=== PATIENT | male | born 1945 | race Caucasian/White ===

== ENCOUNTER → 2019-06-24 12:45 | Outpatient (CLI) | payer MEDICARE, OTHER, SELFPAY ==
--- NOTE | 2019-06-24 12:47 | DI.MRI.S_ITS ---
PROCEDURE: MR LUMBAR SPINE WO CON INDICATIONS: lower back pain. Left hip pain. Right leg pain TECHNIQUE: Noncontrast sagittal T1 spin echo and T2 fast echo, sagittal STIR, axial T1 and T2 fast spin echo through the lumbar spine. In cases with scoliosis, additional coronal T2 fast spin echo may be performed. COMPARISON: CR, SPINE LUMB MIN 4VW, 01/02/2017, 14:44. [facility], MR, L-SPINE WITHOUT CONTRAST, 07/10/2014, 7:14. FINDINGS: Image quality: Excellent. Alignment and Curvature: There is trace retrolisthesis of L2 on L3, L5 on S1. Bone Marrow: Marrow is of normal overall signal. Schmorl's node is noted along the superior endplate of L3 as well as smaller Schmorl's node along the inferior endplate of L2 with minimal surrounding marrow edema. No acute vertebral body compression fractures. Spinal Cord: Conus medullaris terminates at the L1-L2 level. Visualized cord demonstrates normal signal and size. Paraspinous Soft Tissues: No paravertebral masses. Discs: Moderate to severe desiccation is present most notable at L5-S1. L1-L2: Mild disc bulge without spinal stenosis. Minimal to mild left foraminal narrowing with facet and ligamentum flavum hypertrophy. Minimal interval progression. L2-L3: Mild disc bulge with mild spinal stenosis. Mild right and [id number] left foraminal narrowing with mild interval progression. Facet and ligamentum flavum hypertrophy are present. L3-L4: Mild disc bulge with severe spinal stenosis and canal compression, progressive compared to prior exam. There is moderate left and mild right foraminal narrowing, progressive on the left with facet and ligamentum flavum hypertrophy. L4-L5: Mild disc bulge with severe spinal stenosis and canal compression, progressive compared to prior exam. There is severe right and moderate left foraminal narrowing with facet and ligamentum flavum hypertrophy. Right lateral/foraminal protrusion is again noted. L5-S1: Mild disc bulge without spinal stenosis. There is a superimposed right lateral/foraminal protrusion. Severe bilateral foraminal narrowing with facet and ligamentum flavum hypertrophy. IMPRESSION: 1. Although the degenerative changes with areas of interval progression as above. 2. Severe spinal stenosis most notable L3-4 and L4-5 secondary to disc bulge with contributing effects of facet/ligament of an arthropathy. 3. Severe foraminal narrowing most severe at L4-L5 and L5-S1 secondary to facet arthropathy. Dictated by: Aggie Trevizo M.D. on 06/24/2019 at 14:32 Approved by: Aggie Trevizo M.D. on 06/24/2019 at 15:37
== END ==
PROVIDERS: Family Provider Family Medicine; PCP Family Medicine; Visit Provider Physical Medicine & Rehabilitation
DX: M54.5 Low back pain (principal); M25.552 Pain in left hip; M79.604 Pain in right leg; M47.26 Other spondylosis with radiculopathy, lumbar region; M47.27 Other spondylosis with radiculopathy, lumbosacral region; M48.061 Spinal stenosis, lumbar region without neurogenic claudication; M48.07 Spinal stenosis, lumbosacral region; M99.83 Other biomechanical lesions of lumbar region
CPT/HCPCS: 72148

== ENCOUNTER → 2020-08-12 09:05 | Outpatient (CLI) | payer MEDICARE, OTHER, SELFPAY ==
[2020-08-12] MEDS: COVID-19 VACC, Ad26(JANSSEN)/PF 0.5 ML IM (09:12)
== END ==
PROVIDERS: Visit Provider Internal Medicine
DX: Z23 Encounter for immunization (principal)
CPT/HCPCS: 0031A; 91303

== ENCOUNTER → 2020-12-01 07:59 | Outpatient (CLI) | payer MEDICARE, OTHER, SELFPAY ==
[2020-12-01 11:22] LABS: COVID19 -Nasal RAPID Negative (Negative)
== END ==
PROVIDERS: Visit Provider Student in an Organized Health Care Education/Training Program
DX: Z01.812 Encounter for preprocedural laboratory examination (principal); Z20.822 Contact with and (suspected) exposure to COVID-19
CPT/HCPCS: 87635; C9803

== ENCOUNTER 2020-12-03 11:58 | Day surgery (SDC) | payer MEDICARE, OTHER, SELFPAY ==
--- NOTE | 2020-12-03 12:10 | PM.HP.1 ---
History of Present Illness History of Present Illness Date Patient Seen: 12/03/20 Chief complaint: SDC Narrative: 75 year old male comes in today for consideration of a screening colonoscopy. Last colonoscopy in 2007, normal. There have been no lower GI symptoms suggesting disease such as change in bowel habits, bleeding, abdominal pain or anemia. There's been no family history of colon cancer or colon polyps. Overall health issues have been stable, including no major cardiac events for at least 6 weeks. PCP: Dr. Peralta Past Medical History: HYPERLIPIDEMIA HYPERTENSION HYPOTHYROIDISM LUMBAR RADICULOPATHY JEHOVAH WITNESS Past Surgical History: BORA, 2016 Achilles tendon repair Colonoscopy Family History: Mother: Diabetes Social History: Marital Status: - Diana 02/28/49 - Retired Household Members: Mosque: Jehovah Witness - no blood transfusion Patient History Medical History (Updated 07/08/20 @ 08:47 by [employer]) Facet arthropathy, lumbar Surgical History H/O Achilles tendon repair Family & Social History Family History Father Kidney disease Mother Aneurysm Tobacco & Substance use: Smoking Status Never smoker Meds Home Medications and Allergies Home Medications Medication Instructions Recorded Confirmed Type atorvastatin 10 mg tablet PO DAILY 90 Days tab 05/23/18 06/26/19 History levothyroxine 75 mcg tablet PO DAILY 90 Days tab 05/23/18 06/26/19 History lisinopril 10 mg tablet 20 mg PO DAILY 30 Days tab 05/23/18 12/03/20 History gabapentin 600 mg tablet 600 mg PO TID #90 tab 05/12/19 12/03/20 Rx Allergies Allergy/AdvReac Type Severity Reaction Status Date / Time No Known Drug Allergies Allergy Verified 12/03/20 12:17 Review of Systems Review of Systems Narrative: Ten point review of systems completed and found to be noncontributory except for items mentioned in the HPI. Assessment & Plan Assessment & Plan narrative: 1. Screening for colon cancer Plan for colonoscopy. The nature and character of the procedure as well as anticipated results were discussed. The possibility of not completing the procedure was also discussed. Possible complications including aspiration pneumonia, bleeding, perforation and reaction to medications either for sedation or preparation and missed lesions were discussed. Questions were answered and proceeding to the colonoscopy was elected. Informed consent signed.
--- NOTE | 2020-12-03 12:13 | PM.OP.ENDO ---
Operative Date/Time/Diagnoses Date of procedure: 12/03/20 Procedure Notes SCOAP/Timeout: 1:16 p.m. Procedure in detail: ENDOSCOPIST: Janeen Peralta MD Sedation RN: Valerie Maxwell RN Sedation start time: 1:17 p.m. Sedation end time: 1:37 p.m. PROCEDURE: Colonoscopy INDICATIONS: 1. Screening for colon cancer MEDICATION: Levsin 0.125 mg sublingual, incremental doses of Versed and fentanyl until appropriate level sedation achieved. ASA CLASS: 2 CECAL WITHDRAWAL TIME: 7 minutes COMPLICATIONS: None. EXTENT OF PROCEDURE: Cecum. QUALITY OF PREP: Good with portions of liquid stool. PROCEDURE: Prior to insertion of the colonoscope, a digital rectal examination was accomplished with circumferential palpation of the distal rectal mucosa without significant findings being noted. The high-definition colonoscope was passed into the rectum in the usual fashion and advanced over to the cecum without difficulty. The ileocecal valve, appendiceal stoma, and medial wall all could be inspected and no abnormalities were seen. ASCENDING COLON: As the colonoscope was withdrawn, care was taken to expose and inspect the haustral folds and no abnormalities were seen. HEPATIC FLEXURE: Normal, no polyps, diverticula or other abnormalities. TRANSVERSE COLON: Normal, no polyps, diverticula or other abnormalities. DESCENDING COLON: Normal, no polyps, diverticula or other abnormalities. SIGMOID COLON: Normal, no polyps, diverticula or other abnormalities. RECTUM: Normal. J maneuver was produced. There was no significant perianal disease. The J maneuver was broken. The remainder of the rectum was inspected and there was no external hemorrhoid disease. The scope was withdrawn. IMPRESSION: 1. Normal colonoscopy PLAN: 1. Secondary to age, this can be patient's last colonoscopy. The possibility of a missed lesion including a malignancy has been discussed with the patient previously. Potential alarm symptoms have been discussed and should be reported immediately.
[2020-12-03 12:21] VITALS: BP 141/82; PULSE 79; RESP 16; TEMP 36.1; O2SAT 99; BMI 26.6
[2020-12-03] MEDS: HYOSCYAMINE 0.125 MG TABLET PO (12:34)
[2020-12-03] MEDS: LACTATED RINGERS 1,000 ML 200 ML IV (12:34)
[2020-12-03] MEDS: MIDAZOLAM 5 MG/5 ML VIAL IV (13:26)
[2020-12-03] MEDS: fentaNYL 250 MCG/5 ML INJ IV (13:26)
[2020-12-03 13:40] VITALS: BP 128/76; PULSE 78; RESP 12; TEMP 36.7; O2SAT 97
[2020-12-03 13:45] VITALS: BP 136/88; PULSE 80; RESP 14; O2SAT 96
[2020-12-03 13:50] VITALS: BP 134/86; PULSE 75; RESP 16; O2SAT 95
[2020-12-03 14:10] VITALS: BP 136/82; PULSE 74; RESP 16; TEMP 36.4; O2SAT 97
== END 2020-12-03 14:10 | disposition home or self-care (01) ==
PROVIDERS: PCP Student in an Organized Health Care Education/Training Program; Referring Provider Student in an Organized Health Care Education/Training Program; Visit Provider Student in an Organized Health Care Education/Training Program
PROC: 0DJD8ZZ Inspection of Lower Intestinal Tract, Via Natural or Artificial Opening Endoscopic (ICD-10-PCS; CPT 45378; principal; 2020-12-03 13:00)
DX: Z12.11 Encounter for screening for malignant neoplasm of colon (principal); E78.5 Hyperlipidemia, unspecified; I10 Essential (primary) hypertension; E03.9 Hypothyroidism, unspecified
CPT/HCPCS: G0121; J2250; J3010

== ENCOUNTER → 2021-04-08 10:47 | Outpatient (CLI) | payer MEDICARE, OTHER, SELFPAY ==
[2021-04-08] MEDS: COVID-19 VACC #3, MRNA(MOD) 50 MCG/0.25 ML VIAL IM (10:52)
== END ==
PROVIDERS: PCP Student in an Organized Health Care Education/Training Program; Visit Provider Internal Medicine
DX: Z23 Encounter for immunization (principal)
CPT/HCPCS: 0013A; 91301

== ENCOUNTER → 2022-08-24 10:42 | Outpatient (CLI) | payer MEDICARE, OTHER, SELFPAY ==
--- NOTE | 2022-08-24 10:44 | DI.RAD.S_ITS ---
PROCEDURE: XR LUMBAR SPINE MIN 4V INDICATIONS: low back and right hip pain TECHNIQUE: 5 views of the lumbar spine were acquired, including bilateral oblique views. COMPARISON: None. FINDINGS: Bones: Five nonrib-bearing vertebrae are present. Trace retrolisthesis L1 on two and L2 on three. Moderate multilevel disc height loss, most severe at L5-S1. Bridging endplate osteophytes anteriorly. No vertebral body compression fractures. No suspicious bony lesions. Soft tissues: Overlying bowel gas pattern is normal. No suspicious soft tissue calcifications. Oblique images: No pars defects. IMPRESSION: 1. Multilevel spondylosis. 2. Trace retrolisthesis in the upper lumbar spine. Dictated by: Analia Brand M.D. on 08/24/2022 at 16:40 Approved by: Analia Brand M.D. on 08/24/2022 at 16:42
--- NOTE | 2022-08-24 10:44 | DI.RAD.S_ITS ---
PROCEDURE: XR KNEE RT 3V INDICATIONS: right knee pain TECHNIQUE: 3 views of the knee were acquired. COMPARISON: None. FINDINGS: Bones: No fractures or dislocations. No suspicious bony lesions. Soft tissues: No joint effusion. No suspicious soft tissue calcifications. IMPRESSION: Intact right knee. Dictated by: Analia Brand M.D. on 08/24/2022 at 16:42 Approved by: Analia Brand M.D. on 08/24/2022 at 16:42
== END ==
PROVIDERS: PCP Family Medicine; Referring Provider Anesthesiology; Visit Provider Anesthesiology
DX: M25.551 Pain in right hip (principal); M54.50 Low back pain, unspecified; M25.561 Pain in right knee; M47.816 Spondylosis without myelopathy or radiculopathy, lumbar region; M43.16 Spondylolisthesis, lumbar region; M54.40 Lumbago with sciatica, unspecified side; G89.29 Other chronic pain; Z68.29 Body mass index [BMI] 29.0-29.9, adult
CPT/HCPCS: 72110; 73562; 99214

== ENCOUNTER → 2022-08-28 15:40 | Outpatient (CLI) | payer MEDICARE, OTHER, SELFPAY ==
--- NOTE | 2022-08-28 15:53 | DI.MRI.S_ITS ---
PROCEDURE: MR LUMBAR SPINE WO CON INDICATIONS: LOW BACK PAIN TECHNIQUE: Noncontrast sagittal T1 spin echo and T2 fast echo, sagittal STIR, and T2 fast spin echo through the lumbar spine. In cases with scoliosis, additional coronal T2 fast spin echo may be performed. COMPARISON: [facility], MR, MR LUMBAR SPINE WO CON, 06/24/2019, 12:58. FINDINGS: Image quality: Excellent. Alignment and Curvature: There is normal bony alignment. Bone Marrow: Marrow is of normal overall signal. No acute vertebral body compression fractures. Spinal Cord: Conus medullaris terminates at the L1 level. Visualized cord demonstrates normal signal and size. Paraspinous Soft Tissues: No paravertebral masses. T12-L1: Moderate disc desiccation and height loss. No canal stenosis. No foraminal stenosis. L1-L2: Moderate disc desiccation and height loss. Mild facet ligamentum flavum hypertrophy. Broad-based disc bulge. No canal stenosis. No interval change when compared with the study dated June 24, 2019. L2-L3: Moderate disc desiccation and height loss. Broad-based disc bulge. Moderate facet ligamentum flavum hypertrophy. Mild canal stenosis. Moderate bilateral neural foraminal stenosis. The extent of canal stenosis, facet and ligamentum flavum hypertrophy and foraminal stenosis is increased from the 2019 study. There is a small posterior focal high-intensity zone present which may be new from the prior study. L3-L4: Moderate disc desiccation and height loss. Broad-based disc bulge. Severe facet and ligamentum flavum hypertrophy. Severe canal stenosis. The AP diameter of the canal measures 6 mm. This is similar in extent to the prior study from 2019. Severe right and moderate left foraminal stenosis. These findings are unchanged. L4-L5: Severe disc desiccation and height loss. Vacuum disc phenomenon. Severe facet and ligamentum flavum hypertrophy. There is a 1.0 x 0.6 x 1.2 cm central and right paracentral disc protrusion with resultant severe canal stenosis. Severe bilateral neural foraminal narrowing which is unchanged from the 2019 study. L5-S1: Severe disc desiccation and height loss. Severe facet sclerosis. Epidural lipomatosis. No canal stenosis. Severe bilateral neural foraminal stenosis. These findings are unchanged from the prior study. IMPRESSION: 1. New central and right paracentral disc protrusion at L4-5 with resultant severe canal stenosis. 2. Unchanged severe canal stenosis and severe bilateral foraminal narrowing at L4-5 and L5-S1 when compared with the study dated June 24, 2019. Dictated by: Roxy Epps M.D. on 08/28/2022 at 16:53 Approved by: Roxy Epps M.D. on 08/28/2022 at 17:01
== END ==
PROVIDERS: PCP Family Medicine; Referring Provider Anesthesiology; Visit Provider Anesthesiology
DX: M47.27 Other spondylosis with radiculopathy, lumbosacral region (principal); M51.16 Intervertebral disc disorders with radiculopathy, lumbar region; M48.061 Spinal stenosis, lumbar region without neurogenic claudication; M47.26 Other spondylosis with radiculopathy, lumbar region; M48.07 Spinal stenosis, lumbosacral region
CPT/HCPCS: 72148

== ENCOUNTER 2022-09-21 15:19 | Outpatient (CLI) | payer MEDICARE, OTHER, SELFPAY ==
--- NOTE | 2022-09-21 15:20 | DI.RAD.S_ITS ---
PROCEDURE: PAIN L/S TRANSFORAMINAL INJECT INDICATIONS: SPONDYLOSIS COMPARISON: None. FINDINGS: Fluoroscopic spot filming was performed to verify placement of spinal needle at the location of the right L4 nerve root level(s), as labeled on the films. IMPRESSION: Imaging guidance utilized for transforaminal pain injection at the level of the right L4 nerve root. Dictated by: Mark Ceja M.D. on 09/21/2022 at 17:53 Approved by: Mark Ceja M.D. on 09/21/2022 at 17:54
[2022-09-21 15:32] VITALS: BP 139/77; PULSE 70; RESP 20; TEMP 36.2; O2SAT 100
[2022-09-21 16:01] VITALS: BP 133/62; PULSE 61; RESP 13; O2SAT 98
[2022-09-21] MEDS: IOPAMIDOL 15 ML VIAL 3 ML INJ (16:02)
[2022-09-21] MEDS: DEXAMETHASONE 10 MG/ML VIAL INJ (16:02)
[2022-09-21 16:06] VITALS: BP 122/62; PULSE 55; RESP 12; O2SAT 97
[2022-09-21 16:10] VITALS: BP 146/70; PULSE 72; RESP 18; O2SAT 98
--- NOTE | 2022-09-21 17:07 | P.PCN_ITS ---
Date/Time/Diagnoses Date of procedure: 09/21/22 Time of procedure: 16:00 Procedure Notes Physician: Deejay Louie Total Fluoroscopy time (seconds): 15 Total sedation minutes: 0 Procedure in detail & Post-procedure care: Right L4-5 Transforaminal Epidural Steroid Injection Indications: Henrique is presenting for treatment of lumbar radiculopathy with low back and leg pain. Preoperative diagnosis: Right lumbar radiculopathy Postoperative diagnosis: Same Focused Examination: Ax3 Mood and affect are normal Vital Signs: VSS ASA: 2 Consent: Following review of allergies and potential side effects/complications, including, but not necessarily limited to, infection, allergic reaction, local tissue breakdown, stroke, temporary or permanent nerve injury, paralysis, and possible , the patient indicated that they understood and agreed to proceed.? An informed consent document was signed by the patient, witnessed by a nurse and placed in the patient's chart.? Additionally, other treatment options including medications and physical therapy were reviewed with the patient. All questions were answered. Site was then marked. Anesthesia: Local Position: Prone Monitoring: NIBP, Pulse oximetry, 3 lead EKG Needle used: 22G 5 inch spinal needle Contrast: Isovue 300M Injectate: 15 mg Dexamethasone mixed with 1% lidocaine 2ml Technique: The skin was prepped with chloraprep and draped in a sterile fashion. Time out was performed as per protocol. Oxygen applied via NC. Skin and subcutaneous structures of the needle entry site were infiltrated with 3mL of lidocaine 1%. Under fluoroscopic guidance, using an ipsilateral oblique view,?a 22 gauge 5 inch needle was advanced to the base of the L4?pedicle.? The needle was advanced to the superio-posterior aspect of the neural foramen under lateral view.? Oblique and AP views were rechecked. No paresthesias noted by the patient during needle placement. In AP view and utilizing real-time digital subtraction fluoroscopy, 2 ml contrast was slowly injected. Epidural spread was observed without evidence for intravascular nor intrathecal uptake. Contrast spread was seen craniocaudally. The above injectate was then administered, and the needle was subsequently withdrawn. Band-Aids applied to injection sites. EBL: less than 1 ml Complications: None Post Procedure: Patient was taken to the recovery and monitored. The patient was provided a Pain Log to continue to record the patient's response to the target- specific procedure prior to the patient's follow-up visit with the referring physician. Patient was stable upon discharge. Detailed post procedure instructions were provided. Patient was asked to call in the event of worsening pain, fever, weakness, numbness or bladder or bowel incontinence.
== END 2022-09-21 16:20 | disposition home or self-care (01) ==
LOC: RAD 15:20
PROVIDERS: PCP Family Medicine; Referring Provider Anesthesiology; Visit Provider Anesthesiology
DX: M54.16 Radiculopathy, lumbar region (principal)
CPT/HCPCS: 64483; J1100